=== PATIENT | female | born 1970 | race Native Hawaiian/Other Pacific Islander ===

== ENCOUNTER 2018-01-06 16:12 | Outpatient (CLI) | payer BC | END 2018-01-06 22:22 | disposition home or self-care (01) | LOC: MAMMO 16:12 | DX: Z12.31 Encounter for screening mammogram for malignant neoplasm of breast (principal) ==

== ENCOUNTER 2019-06-02 15:59 | Outpatient (CLI) | payer BC | END 2019-06-02 20:30 | disposition home or self-care (01) | LOC: MAMMO 15:59 | DX: Z12.31 Encounter for screening mammogram for malignant neoplasm of breast (principal) ==

== ENCOUNTER 2021-08-22 15:40 | Outpatient (CLI) | payer BC | END 2021-08-22 21:44 | disposition home or self-care (01) | LOC: MAMMO 15:40 | PROVIDERS: ATTEND Obstetrics & Gynecology | DX: Z12.31 Encounter for screening mammogram for malignant neoplasm of breast (principal) ==

== ENCOUNTER 2022-12-05 15:35 | Outpatient (CLI) | payer BC | END 2022-12-05 18:58 | disposition home or self-care (01) | LOC: MAMMO 15:35 | PROVIDERS: ATTEND Obstetrics & Gynecology | DX: Z12.31 Encounter for screening mammogram for malignant neoplasm of breast (principal) ==